=== PATIENT | female | born 1980 | race Caucasian/White ===

== ENCOUNTER 2023-12-02 11:57 | Emergency (ER) | payer OTHER ==
[~2023-12-02] VITALS: Ht 165.1 cm; Wt 54.4 kg
[2023-12-02 12:00] VITALS: BP_SYST 123; PULSE 72; RESP 18; TEMP 97; O2SAT 99
[2023-12-02 12:26] LABS: BASOPHILS % (AUTO) 0.3 % (0.0-2.0); EOSINOPHILS % (AUTO) 0.5 % (0.0-4.0); HEMATOCRIT 39.7 % (36-48); HEMOGLOBIN 13.2 g/dL (12.0-16.0); LYMPHOCYTES # (AUTO) 1.3 K/uL (1.0-5.5); MEAN CORPUSCULAR HEMOGLOBIN 31 pg (27-31); MEAN CORPUSCULAR HGB CONC 33 % (32-36); MEAN CORPUSCULAR VOLUME 94 fL (79.0-98.0); MONOCYTES # (AUTO) 0.5 K/uL (0.0-1.0); MONOCYTES % (AUTO) 5.3 % (1.7-9.3); NEUTROPHILS # (AUTO) 7.6 K/uL (1.8-7.7); NEUTROPHILS % (AUTO) 79.9 % (40.0-70.0); PLATELET COUNT (AUTO) 264 K/uL (130-430); RED BLOOD CELL COUNT(AUTO) 4.21 MIL/uL (4.2-6.2); RED CELL DISTRIBUTION WIDTH 13.4 % (9.0-15.0); WHITE BLOOD COUNT (AUTO) 9.5 K/uL (4.8-10.8)
[2023-12-02 12:42] LABS: SERUM HCG (QUALITATIVE) NEGATIVE (NEGATIVE)
[2023-12-02] MEDS: ONDANSETRON 4 MG ODT TAB PO ONE (12:44)
[2023-12-02 12:45] LABS: ALBUMIN 3.9 g/dL (3.4-4.8); AMYLASE 92 U/L (0-100); ANION GAP 9 (5-15); BILIRUBIN,DIRECT 0.1 mg/dL (0.0-0.3); CALCIUM 8.6 mg/dL (8.4-11.0); CARBON DIOXIDE 27 mmol/L (23-29); CHLORIDE 103 mmol/L (98-107); CREATININE 0.67 mg/dL (0.55-1.30); GFR AFRICAN AMERICAN 122 mL/min (>90); GLUCOSE 91 mg/dL (74-106); LIPASE 37 U/L (16-77); POTASSIUM 3.6 mmol/L (3.5-5.1); SODIUM SERUM 139 mmol/L (136-145); TOTAL BILIRUBIN 0.7 mg/dL (0.0-1.0); TOTAL PROTEIN, SERUM 7.8 g/dL (6.4-8.3); UREA NITROGEN, BLOOD 5 mg/dL (8-21)
[2023-12-02 12:46] LABS: ACETONE, SERUM NEGATIVE (NEGATIVE); GFR NON AFRICAN-AMERICAN 101 mL/min (>90)
[2023-12-02 12:51] LABS: BILIRUBIN,URINE NEGATIVE (NEGATIVE); BLOOD, URINE 2+ (NEGATIVE); CLARITY/URINE CLEAR (CLEAR); GLUCOSE,URINE NEGATIVE (NEGATIVE); KETONES,URINE NEGATIVE (NEGATIVE); LEUKOCYTE ESTERASE ,URINE 1+ (NEGATIVE); NITRITE, URINE NEGATIVE (NEGATIVE); PROTEIN URINE NEGATIVE (NEGATIVE); UROBILINOGEN,URINE 0.2 (0.2-1.0)
[2023-12-02 12:55] LABS: COLOR,URINE STRAW (YELLOW)
[2023-12-02 13:01] LABS: PROTHROMBIN TIME 9.9 SECS (9.5-12.5)
[2023-12-02 13:03] LABS: BACTERIA,URINE FEW /HPF (None Seen)
[2023-12-02] MEDS ORDERED: PHEN-726 PO (14:24)
[2023-12-02] MEDS ORDERED: IBUP-1969 PO (14:24)
[2023-12-02] MEDS ORDERED: SULF1TAB48 PO (14:24)
[2023-12-02] MEDS: SULFAMETHOXAZOLE/TRIMETHOPR DS 1 TABLET PO ONE (14:35)
[2023-12-02 14:40] VITALS: BP_SYST 123; PULSE 72; RESP 18; TEMP 97; O2SAT 99
[2023-12-02 22:51] LABS: ASPARTATE AMINOTRANSFERASE 13 U/L (10-37)
[2023-12-02 22:52] LABS: ALANINE AMINOTRANSFERASE 14 U/L (12-78)
== END 2023-12-02 14:41 | disposition home or self-care (01) ==
LOC: SED 11:57
DX: N39.0 Urinary tract infection, site not specified (principal); Z88.1 Allergy status to other antibiotic agents
CPT/HCPCS: 99283; 80076; 80048; 81001; 82009; 82150; 84703; 83690; 85025; 85610; 85730; 87086; 87186; 36415; 81025; 83605; Q0162; 81000; 81015